=== PATIENT | female | born 2000 | race Caucasian/White ===

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

== ENCOUNTER 2019-06-30 13:12 | Emergency (ER) | payer OTHER ==
[2019-06-30 15:12] VITALS: BP 101/61
--- NOTE | 2019-06-30 15:17 | UC ---
Throat Pain/Nasal Rober HPI - HPI Summary HPI Summary: 18 y/o female presents to the urgent care c/o sore throat, nasal congestion, w/ yellowish nasal discharge, and a dry cough for the past 4 days. Pt reports symptoms worsen this morning when she woke up w/ RT eye pain, redness and crusting yellowish drainage. Pain w/ swallowing is 2/10. She has not taken anything to alleviate symptoms. Pt has Hx os Asthma which has been controlled and denies fever, wheezing, SOB, dizziness, chest pain, abdominal pain, N/V/D. Pt is UTD w/ all vaccines for her age. - History of Current Complaint Chief Complaint: UCRespiratory Stated Complaint: ST,RT EYE COMPLAINT Time Seen by Provider: 06/30/19 15:15 Hx Obtained From: Patient Hx Last Menstrual Period: unknown Onset/Duration: Gradual Onset, Lasting Days - 4 days, Still Present, Worse Since - this morning w/ Rt eye yellowish crusting and red Severity: Mild Pain Intensity: 2 - sore throat Pain Scale Used: 0-10 Numeric Cough: None Associated Signs & Symptoms: Positive: Sinus Discomfort, Nasal Discharge - yellowish. Negative: Dysphagia, Wheezing, Fever, Rash Related History: Seasonal Allergies - Epiglottits Risk Factors Epiglottis Risk Factors: Negative - Allergies/Home Medications Allergies/Adverse Reactions: Allergies Allergy/AdvReac Type Severity Reaction Status Date / Time No Known Allergies Allergy Verified 06/30/19 15:03 Home Medications: Home Medications Acetaminophen [Acetaminophen Extra Strength] 1,000 mg PO Q6H PRN 06/30/19 [ History Confirmed 06/30/19] medroxyPROGESTERone ACETATE* [DEPO-Provera*] 150 mg IM SEE INSTRUCTIONS [History Confirmed 06/30/19] PMH/Surg Hx/FS Hx/Imm Hx Previously Healthy: Yes Respiratory History: Asthma - Surgical History Surgical History: Yes Surgery Procedure, Year, and Place: gallbladder - Family History Known Family History: Positive: Other - mother and sister had gal bladder out in there early 20's Family History: Dyslipidemia - Social History Occupation: Employed Full-time Lives: With Family Alcohol Use: None Substance Use Type: None Smoking Status (MU): Never Smoked Tobacco - Immunization History Most Recent Influenza Vaccination: [id number] Vaccination Up to Date: Yes Review of Systems All Other Systems Reviewed And Are Negative: Yes Constitutional: Positive: Negative Skin: Positive: Negative Eyes: Positive: Eye Redness - RT eye w/ yellowish crusting. Negative: Blurred Vision, Photophobia ENT: Positive: Sore Throat, Nasal Discharge - yellowish, Sinus Congestion, Sinus Pain/Tenderness, Other - moderate PND Respiratory: Positive: Negative Cardiovascular: Positive: Negative Gastrointestinal: Positive: Negative Genitourinary: Positive: Negative Motor: Positive: Negative Neurovascular: Positive: Negative Musculoskeletal: Positive: Negative Neurological: Positive: Negative Psychological: Positive: Negative Is Patient Immunocompromised?: No Physical Exam - Summary Physical Exam Summary: Vital Signs Reviewed: Yes General: Well appearing, well nourished adolescent female in no apparent pain distress Eyes: Positive: RT Conjunctiva Inflamed and LF conjunctiva clear - Visual acuity : WNL,Visual holt: full to confrontation. PERRLA, EOMI intact w/out limitation or complaint of pain. eyelashes clear. mild tearing and yellowish drainage and crusting observed. No ciliary flush. No chemosis, No photophobia. Normal fundoscopic exam; no proptosis, exophthalmos, nystagmus. ENT: Positive: Normal ENT inspection, Hearing grossly normal, Pharynx normal, Nasal congestion, Nasal drainage - clear, TMs normal - B/L external ear canal clear , TM's WNL. Negative: Tonsillar swelling, Tonsillar exudate. Maxillary and frontal sinuses tenderness on percussion. Mild clear PND Neck: Positive: Supple, Nontender, No Lymphadenopathy Respiratory: Positive: Chest nontender, Lungs clear, Normal breath sounds, No respiratory distress Cardiovascular: Positive: RRR, No Murmur, Pulses Normal, Brisk Capillary Refill Abdomen Description: Positive: Nontender, No Organomegaly, Soft. Negative: CVA Tenderness (R), CVA Tenderness (L) Bowel Sounds: Positive: Present Musculoskeletal: Positive: Strength Intact, ROM Intact, No Edema Neurological Exam: Normal Psychological Exam: Normal Skin Exam: Normal Triage Information Reviewed: Yes Vital Signs: Initial Vital Signs Temp 97.4 F 06/30/19 15:08 Pulse 103 06/30/19 15:08 Resp 17 06/30/19 15:08 BP 101/61 06/30/19 15:08 Pulse Ox 100 06/30/19 15:08 Throat Pain/Nasal Course/Dx - Course Course Of Treatment: 18 y/o female presents to the urgent care c/o sore throat, nasal congestion, w/ yellowish nasal discharge, and a dry cough for the past 4 days. Pt reports symptoms worsen this morning when she woke up w/ RT eye pain, redness and crusting yellowish drainage. Pain w/ swallowing is 2/10. She has not taken anything to alleviate symptoms. Pt has Hx os Asthma which has been controlled and denies fever, wheezing, SOB, dizziness, chest pain, abdominal pain, N/V/D. Pt is UTD w/ all vaccines for her age. Hx obtained. PE abnormal findings: B/L PERRLA, EOMI, fundi grossly normal, no tender to palpation. RT conjunctiva moderately injected, mild yellowish discharge, LF conjunctiva clear. Most likely Bacterial conjunctivitis and also sinusitis. Pt Rx Ciprofloxacin ophthalmic drops and Flonase nasal spray to alleviate symptoms. Advised to encourage hand washing to avoid spreading. Increase hydration. Advised if symptoms do not improve or worsen to f/u with Cost Engineer Dr Rae in 2- 3 days. Pt understood and agreed w/ plan of care. - Differential Dx/Diagnosis Differential Diagnosis/HQI/PQRI: Influenza, Laryngitis, Otitis Media, Pharyngitis, Sinusitis, URI Provider Diagnosis: Acute sinusitis, Conjunctivitis, right eye Discharge ED - Sign-Out/Discharge Documenting (check all that apply): Patient Departure - D/C home All imaging exams completed and their final reports reviewed: No Studies - Discharge Plan Condition: Stable Disposition: HOME Prescriptions: Ciprofloxacin 0.3% OPTH.JOSE DANIEL* [Cipro 0.3% Opth*] 1 drop RIGHT EYE Q2H #1 btl Fluticasone NASAL SPRAY 50MCG* [Flonase NASAL SPRAY 50MCG*] 2 spray BOTH NARES DAILY #1 btl Patient Education Materials: Sinusitis (ED), Conjunctivitis (ED) Forms: *Work Release Referrals: Caprice Nguyen PA [Primary Care Provider] - 3 Days Additional Instructions: 1- Rapid strep negative. 2-Use Flonase as directed to help drain fluid. Also buy saline drops to clear sinuses. Increase fluid intake 3-Take Sudafed to alleviates sinus congestion 4- Use the ciprofloxacin opthlamic drops as directed. Encourage hand washing to avoid spread. 5-Return to the clinic or PCP if symptoms do not improve for further management and treatment - Billing Disposition and Condition Condition: STABLE Disposition: Home
== END 2019-06-30 15:44 | disposition home or self-care (01) ==
LOC: UCCORT 13:12
DX: J01.90 Acute sinusitis, unspecified (principal); H10.9 Unspecified conjunctivitis; J45.909 Unspecified asthma, uncomplicated
CPT/HCPCS: 87651; 99212; G0463